=== PATIENT | female | born 1980 | race Two or more races ===

== ENCOUNTER 2016-05-12 00:01 | Emergency (ER) | payer MEDICAID ==
[~2016-05-12] VITALS: Ht 160 cm; Wt 59.0 kg
[2016-05-12 00:45] VITALS: BP 159/107
[2016-05-12 00:59] LABS: KETONES,URINE NEGATIVE (NEGATIVE); LEUKOCYTE ESTERASE ,URINE NEGATIVE (NEGATIVE)
[2016-05-12 01:00] LABS: ADD UA MICROSCOPIC YES
[2016-05-12 01:02] LABS: PREGNANCY TEST URINE QUAL NEGATIVE (NEGATIVE)
[2016-05-12 01:18] LABS: ADD URINE CULTURE YES; RBC,URINE 0-2 /HPF (0-2)
[2016-05-12] MEDS ORDERED: PHENAZOPYRIDINE HCL 200 MG TABLET ONE (02:20)
[2016-05-12] MEDS ORDERED: CEPHALEXIN MONOHYDRATE 500 MG CAPSULE PO ONE ×2 (02:21→02:30)
[2016-05-12] MEDS ORDERED: HYDROCODONE/APAP 5/325MG 1 EACH TABLET ONE (02:23)
[2016-05-12] MEDS ORDERED: HYDROCODONE/APAP 5/325MG 1 EACH TABLET PO ONE (02:30)
[2016-05-12] MEDS ORDERED: PHENAZOPYRIDINE HCL 200 MG TABLET PO ONE (02:30)
== END 2016-05-12 02:35 | disposition home or self-care (01) ==
LOC: ER 00:06
DX: N12 Tubulo-interstitial nephritis, not specified as acute or chronic (principal)
CPT/HCPCS: 81001; 82962; 84703; 87086; 87186; 99284; A4606; Z7610; 81000-TC